=== PATIENT | male | born 1980 | race Caucasian/White ===

== ENCOUNTER 2018-08-18 07:33 | Emergency (ER) | payer BC ==
[2018-08-18 07:44] VITALS: BP 113/78
--- NOTE | 2018-08-18 07:59 | UC ---
Bite Injury/Animal HPI - HPI Summary HPI Summary: Mr. Merlos found a tick on himself yesterday. He is not sure when it first got on but he was working outside a lot over the weekend. - History of Current Complaint Chief Complaint: [employer] Stated Complaint: TICK BITE Time Seen by Provider: 08/18/18 07:52 Hx Obtained From: Patient Severity Currently: None Severity Initially: Mild Pain Intensity: 0 Onset/Duration: Sudden Onset Type of Bite: Wild Animal Character: Puncture Hx of Bite: Unprovoked Animal Available for Observation: Yes - Allergies/Home Medications Allergies/Adverse Reactions: Allergies Allergy/AdvReac Type Severity Reaction Status Date / Time No Known Allergies Allergy Verified 08/18/18 07:45 Home Medications: Home Medications NK [No Home Medications Reported] 08/18/18 [History Confirmed 08/18/18] PMH/Surg Hx/FS Hx/Imm Hx Previously Healthy: Yes - Surgical History Surgical History: None - Social History Alcohol Use: Weekly Substance Use Type: None Smoking Status (MU): Light Every Day Tobacco Smoker Amount Used/How Often: 1 cig/day Household Exposure Type: Cigarettes Review of Systems All Other Systems Reviewed And Are Negative: Yes Physical Exam - Summary Physical Exam Summary: There is a very small puncture anusha on his left lateral thigh proximally. Vital Signs: Initial Vital Signs Temp 97.8 F 08/18/18 07:41 Pulse 69 08/18/18 07:41 Resp 18 08/18/18 07:41 BP 113/78 08/18/18 07:41 Pulse Ox 99 08/18/18 07:41 Bite Injury Course/Dx - Course Course Of Treatment: He brought the tick and which is alive nymphal black legged tick that is partially engorged. Because he thinks that his exposure was on the weekend and the tick is partially engorged I will treat him with a dose of doxycycline as preventative. - Differential Dx/Diagnosis Provider Diagnosis: Tick bite Discharge - Sign-Out/Discharge Documenting (check all that apply): Patient Departure All imaging exams completed and their final reports reviewed: No Studies - Discharge Plan Condition: Stable Disposition: HOME Patient Education Materials: Tick Bite (ED) Referrals: Dariana VASQUEZ,Nancy Snowden [Primary Care Provider] - - Billing Disposition and Condition Condition: STABLE Disposition: Home
[2018-08-18] MEDS ORDERED: DOXYcycline CAP(*) 100 MG PO ONE ×2 (08:01→08:05)
== END 2018-08-18 08:15 | disposition home or self-care (01) ==
LOC: UCEAST 07:33
DX: T63.481A Toxic effect of venom of other arthropod, accidental (unintentional), initial encounter (principal); Y92.9 Unspecified place or not applicable; F17.210 Nicotine dependence, cigarettes, uncomplicated
CPT/HCPCS: 99202; A9270-GY; G0463